=== PATIENT | male | born 1990 | race Caucasian/White ===

== ENCOUNTER 2016-08-31 11:39 | Emergency (ER) | payer OTHER ==
[2016-08-31] MEDS ORDERED: oxyCODONE/Acetamin 5/325 MG* TAB PO ONE ×2 (12:02→13:16)
--- NOTE | 2016-08-31 12:04 | ED ---
Upper Extremity Pain - HPI Summary HPI Summary: 25M presents with right hand pain s/p fall yesterday. He landed on his outstretched hand. He states pain is greatest in 2-3rd metacarpal. He was given ibuprofen by the snf system. He has limited ROM due to pain in index and middle finger. He has history of boxer fracture there. He denies any numbness or tingling. He states pain is 9/10. He is right handed. He denies any other injury. - History of Current Complaint Chief Complaint: EDExtremityUpper Stated Complaint: RIGHT HAND PAIN Time Seen by Provider: 08/31/16 11:45 - Allergies/Home Medications Allergies/Adverse Reactions: Allergies Allergy/AdvReac Type Severity Reaction Status Date / Time No Known Allergies Allergy Verified 08/31/16 12:09 PMH/Surg Hx/FS Hx/Imm Hx Endocrine/Hematology History: Denies: Hx Anticoagulant Therapy Cardiovascular History: Denies: Hx Hypertension Infectious Disease History: No Infectious Disease History: Denies: Traveled Outside the [place] in Last 30 Days - Family History Known Family History: Positive: Hypertension - Social History Alcohol Use: None Substance Use Type: Reports: None Smoking Status (MU): Light Every Day Tobacco Smoker Review of Systems Negative: Fever Negative: Chest Pain Negative: Shortness Of Breath Positive: Myalgia - right hand pain, Edema - right hand All Other Systems Reviewed And Are Negative: Yes Physical Exam Triage Information Reviewed: Yes Vital Signs On Initial Exam: Initial Vitals Temp Pulse Resp BP Pulse Ox 97.9 F 65 20 131/67 100 08/31/16 11:42 08/31/16 11:42 08/31/16 11:42 08/31/16 11:42 08/31/16 11:42 Vital Signs Reviewed: Yes Appearance: Positive: Well-Appearing Skin: Positive: Warm, Dry Head/Face: Positive: Normal Head/Face Inspection Eyes: Positive: Normal, Conjunctiva Clear Respiratory/Lung Sounds: Positive: Clear to Auscultation, Breath Sounds Present Cardiovascular: Positive: Normal, RRR Musculoskeletal: Positive: Strength/ROM Intact - right wrist and elbow, Limited @ - fingers due to pain, Other - good pulses, capillary refill < 2 secs, tenderness along 2-4th metacarpel with eccyhmosis noted to area with edema present there, neg snuff box tenderness Procedures - Splinting Location: right hand Hand-Made Type: orthoglass Splint: volar Pre-Proc Neuro Vasc Exam: normal Post-Proc Neuro Vasc Exam: normal Diagnostics - Vital Signs Vital Signs Temp Pulse Resp BP Pulse Ox 08/31/16 11:42 97.9 F 65 20 131/67 100 - Laboratory Lab Statement: Any lab studies that have been ordered have been reviewed, and results considered in the medical decision making process. - Radiology hand Xray Interpretation: Positive (See Comments) - IMPRESSION: ACUTE THIRD AND FOURTH METACARPAL FRACTURES. Radiology Interpretation Completed By: Radiologist Course/Dx - Course Course Of Treatment: 25M presents with right hand pain s/p FOOSH last night. He is right handed. pain and swelling greatest in index and middle finger. ecchymosis noted to index and middle finger. snuff box tenderness, xray shows fracture of 3-4th metacarpel, placed in volvar splint. neurovascular intact afterwards, told prision system to have follow up with ortho, patient understands and agrees with plan - Diagnoses Differential Diagnosis/HQI/PQRI: Positive: Fracture (Closed), Strain, Sprain Provider Diagnoses: Metacarpal bone fracture Discharge - Discharge Plan Condition: Good Disposition: HOME Patient Education Materials: Hand Fracture (ED) Referrals: Rose Ria [Primary Care Provider] - Aster Osuna MD [Medical Doctor] - Additional Instructions: ice, elevate Take ibuprofen for pain every 6 hours, take tramadol for break through pain Follow up with ortho within 5 days Return to ED if develop any new or worsening symptoms
--- NOTE | 2016-08-31 12:36 | RAD ---
INDICATION: Right hand injury COMPARISON: None TECHNIQUE: AP, lateral, and oblique views were obtained. FINDINGS: There are mildly displaced oblique fractures of the mid diaphysis of the third metacarpal and the proximal fourth metacarpal. There is an old distal fifth metacarpal fracture. There is prominent soft tissue swelling over the dorsum of the hand. No additional significant findings IMPRESSION: ACUTE THIRD AND FOURTH METACARPAL FRACTURES.
[2016-08-31] MEDS ORDERED: Ibuprofen TAB* 800 MG PO ONE (13:17)
[2016-08-31 13:27] VITALS: BP 118/55
== END 2016-08-31 13:26 | disposition home or self-care (01) ==
LOC: ED 11:39
DX: S62.308A Unspecified fracture of other metacarpal bone, initial encounter for closed fracture (principal); R51 Headache; W19.XXXA Unspecified fall, initial encounter; Y93.9 Activity, unspecified; Y92.9 Unspecified place or not applicable; F17.210 Nicotine dependence, cigarettes, uncomplicated
CPT/HCPCS: 99282; A9270-GY

== ENCOUNTER 2016-09-20 08:54 | Day surgery (SDC) | payer OTHER ==
[~2016-09-20 08:54] MED LIST: Buffered Lidocaine 0.9% SYRIN* 5 ML/SYR SYRINGE INTRADERM ONE; Sodium Citrate/Citric Acid* 15 ML UDC PO ONE
[2016-09-20] MEDS ORDERED: Ibuprofen TAB* 400 MG ONE (09:01)
[2016-09-20] MEDS ORDERED: Sodium Citrate/Citric Acid* 15 ML UDC ONE (09:02)
[2016-09-20] MEDS ORDERED: ceFAZolin 2 GM PREMIX(*) 2 GM/50 ML BAG IVPB ONE (09:02)
[2016-09-20] MEDS: Ibuprofen TAB* 400 MG PO ONE (09:14)
[2016-09-20] MEDS ORDERED: fentaNYL* 50 MCG/ML 2 ML VIAL (100 MCG VIAL) ONE ×2 (11:12→14:43)
[2016-09-20] MEDS ORDERED: oxyCODONE/Acetamin 5/325 MG* TAB PO PRN (11:34)
[2016-09-20] MEDS ORDERED: DiMENhydriNATE IV* 50 MG/ML VIAL IV PUSH PRN (11:34)
[2016-09-20] MEDS ORDERED: Ondansetron INJ* 2 MG/ML VIAL IV PRN (11:34)
[2016-09-20] MEDS ORDERED: Bupivacaine 0.25% SDV* 30 ML ONE (13:10)
[2016-09-20] MEDS ORDERED: Propofol* 10 MG/ML 20 ML BTL IV PUSH ONE (13:28)
[2016-09-20] MEDS ORDERED: Lidocaine 2% PF * 5 ML VIAL ONE (13:28)
[2016-09-20] MEDS ORDERED: HYDROcodone/ACETAMIN 5-325 MG* 1 TAB ONE (14:45)
[2016-09-20] MEDS: fentaNYL* 50 MCG/ML 2 ML VIAL (100 MCG VIAL) IV PRN ×2 (14:45→14:53)
[2016-09-20 16:12] VITALS: BP 132/73
--- NOTE | 2016-09-21 09:29 | RAD ---
INDICATION: Right hand surgery. COMPARISON: There are no prior studies available for comparison. TECHNIQUE: 1 minute and 16 seconds of intermittent fluoroscopic guidance were provided and 3 spot films of the right hand were obtained in the operating room. FINDINGS: There is an old healed boxer's type fracture of the fifth metacarpal. There are metallic plates present along the dorsal aspect of the third and fourth metacarpals transfixed with multiple surgical screws spanning nondisplaced fractures. IMPRESSION: INTRAOPERATIVE CONTROL FILMS. CPT II Codes: 6045F
--- NOTE | 2016-09-21 10:55 | OP ---
DATE OF OPERATION: 09/20/16 - [facility] DATE OF : 89 SURGEON: Shabbir Arreaga MD DIRECTOR OF INTEGRATED MARKETING: RAKAN Jean Baptiste. An veterinary assistant technician was needed throughout the entirety of the procedure to aid with retraction and traction and to help achieve the reduction. ANESTHESIOLOGIST: Dell Menard MD ANESTHESIA: General. PRE-OP DIAGNOSIS: Right displaced third and fourth metacarpal fractures. POST-OP DIAGNOSIS: Right displaced third and fourth metacarpal fractures. OPERATIVE PROCEDURE: Open reduction internal fixation of right third and fourth metacarpal fractures. INDICATIONS: Isaias is a prisoner. Roughly 3-1/2 to 4 weeks ago, he fractured the third and fourth metacarpals. He came into my office, where they were noted to be significantly shortened and displaced, particularly the third metacarpal. I recommended open reduction internal fixation. We had talked about the risks and benefits and what the surgery entailed, including the risk of postoperative tendon adhesions and stiffness. He wanted to proceed. EBL: 5 mL. COMPLICATIONS: None. FINDINGS: As expected, there was significant callus formation that had to be taken down. DESCRIPTION OF PROCEDURE: Isaias was seen in the preoperative holding area. The correct site, side, and procedure were identified. We came back to the operating room where anesthesia was induced and the arm was prepped and draped in the usual fashion. A formal time-out was performed. The arm was exsanguinated with the Esmarch and the tourniquet inflated to 250 mmHg. I made a longitudinal incision between the third and fourth metacarpals, the length of the metacarpal bones. Dissection was carried down longitudinally with the tenotomy scissors, taking great care to preserve the coursing dorsal sensory nerves. There was one branch that crossed the field and this was protected throughout the entirety of the procedure. There was one junctura that had to be released between the third and fourth extensor tendons. I then made a longitudinal incision over the dorsal periosteum, over the third metacarpal. Full-thickness flaps were raised. There was abundant soft callus that had formed. I then identified the bony edges and it took a while to free up all the callus and get back to clean, healthy wainwright bone edges. Once I had opened up the fracture site and had a clamp on either side of the fracture, I was able to deliver both bone edges, clean up all the soft callus, get back to healthy, clean cortical bone. I then brought in a [id number] clamp and the fracture was reduced and clamped in place. Mini C-arm fluoroscopy confirmed the reduction. I then placed a 1.5-mm lag screw across the fracture obliquity. This provided excellent compression. It was countersunk, so that the head screw is flush with the bone. With the lag screw in place, the clamps were removed. I then selected a straight 2.0-mm plate off the Synthes variable angle handset. The final 3 holes were trimmed off the end of the plate after I checked the length on fluoroscopy. I then positioned the plate. It was secured distally with two 2.0 cortical screws. Once I had confirmed that everything still looked nice on fluoroscopy, I went ahead and secured the rest of the plate with additional 2.0 cortical screws and 1 unicortical 2.0 locking screw in the distal-most hole. Final imaging was checked for this bone and it looked like all the screw lengths were good. The reduction was anatomic. I went ahead and irrigated everything out copiously and removed any shards of callus and extra bone. I then took a 5-0 Prolene suture and closed the periosteal layer over the plate until the plate was completely covered. I then turned my attention to the fourth metacarpal bone. Again, the periosteum was incised longitudinally over the dorsum of the fourth metacarpal. Full-thickness subperiosteal flaps were raised. Again, there was abundant callus. The volar fracture line was identified. This extended dorsally all the way almost to the base of the fourth metacarpal, but not quite. It did look like it was an extraarticular fracture. Again, this took quite a bit of work, but I was able to deliver the bone edges, I was able to free it up of all the soft callus. With this done, I then took a reduction clamp and clamped the fracture in place. Once this was in place, I placed one 1.5-mm lag screw and then one 2.0-mm lag screw. There was excellent compression generated. I was satisfied with the reduction both clinically and fluoroscopically. It took a fair amount of effort to achieve a nice reduction. With the lag screws in place , I went ahead and placed a T-plate and trimmed the distal holes until I felt it was the right length. This was contoured to match the surface of the bone. The plate was then secured proximally and distally with 2.0 cortical screws distally and 2.0 locking screws proximally. Again, the final imaging was checked and the screw lengths all looked very nice. The reduction looked anatomic on the third metacarpal and almost anatomic on the fourth metacarpal with maybe just a slight step-off, but certainly for the fracture being 4 weeks out, felt like this was looking quite nice. Clinically, the fingers had an excellent cascade. There was no malrotation. Everything looked very nice. I, therefore, went ahead and irrigated out the wound. All bony shards were removed. The periosteal layer was closed with 5-0 Prolene suture, again burying the knot and completely covering the plate. I then irrigated out the wound again. The junctura was repaired with 3-0 Ethibond suture. Wound was irrigated one more time and the skin was closed with 4-0 nylon suture. Marcaine 0.25% was infiltrated into the operative area. The wound was dressed with Xeroform, 4x4's, sterile Webril, and a volar splint was applied all the way out to the PIP joint. The tourniquet was deflated. The fingers pinked up immediately. I had, during the case, had to deflate the tourniquet one time as he was trying to bleed through the tourniquet a little bit, and so I went ahead and re-exsanguinated the arm and re- inflated the tourniquet to 275. After dropping the tourniquet, the hand pinked up immediately. Total tourniquet time was 150 minutes. He was then woken up and taken to the recovery room in stable condition. [id number]/[facility] #: [id number] [facility] SHOREKhushboo
== END 2016-09-20 16:08 | disposition home or self-care (01) ==
LOC: OREAST 08:54
PROVIDERS: ATTEND Orthopaedic Surgery Hand Surgery
DX: S62.322A Displaced fracture of shaft of third metacarpal bone, right hand, initial encounter for closed fracture (principal); S62.324A Displaced fracture of shaft of fourth metacarpal bone, right hand, initial encounter for closed fracture; Y04.0XXA Assault by unarmed brawl or fight, initial encounter; Y92.149 Unspecified place in prison as the place of occurrence of the external cause
CPT/HCPCS: 76000; A9270-GY; C1713; C1776; J0690; J2704; J3010